=== PATIENT | male | born 1995 | race Caucasian/White ===

== ENCOUNTER 2018-02-07 18:34 | Observation (INO) | payer BC, SELFPAY ==
[2018-02-07] VITALS (10 sets, daily range): BP systolic 116–153; BP diastolic 67–84; PULSE 62–84; RESP 16–24; TEMP 36.8; O2SAT 97–99; BMI 34.7; BMI 35.4; BMI 35.5
[2018-02-07 19:00] LABS: Bedside Glucose 91 mg/dL (70-110)
--- NOTE | 2018-02-07 19:04 | EKG12_ITS ---
Test Reason : NEURO SYMPTOMS Blood Pressure : / mmHG Vent. Rate : 070 BPM Atrial Rate : 070 BPM P-R Int : 176 ms QRS Dur : 098 ms QT Int : 390 ms P-R-T Axes : 052 004 026 degrees QTc Int : 421 ms Normal sinus rhythm Normal ECG Confirmed by EDGAR MARTINEZ, RANDY ([id number]), script editor VIVIANA BRAUN ([id number]) on 02/10/2018 4:00:54 PM Referred By: PAYTON Confirmed By:RANDY HERNÁNDEZ MD
--- NOTE | 2018-02-07 19:06 | CT_ITS ---
CTA of the neck INDICATION: Headache TECHNIQUE: CTA of the neck was performed in the axial plane scanning in a dynamically enhanced fashion from the base of skull through the pulmonary apices followed by sagittal and coronal reconstructions. Radiographic technique was optimized to limit patient radiation dose. FINDINGS: There is no appreciable plaque within the common carotids, carotid bulbs or internal carotids. The vertebrals bilaterally are codominant and normal caliber. There is no evidence for aneurysm or dissection CT/CTA Neck W/WO Contrast IMPRESSION: No appreciable atherosclerotic disease Electronically Signed: Donald Conn MD at 20:58 EDT , Service support ,
--- NOTE | 2018-02-07 19:06 | CT_ITS ---
STUDY: CTA OF THE BRAIN REASON FOR EXAM: Male, 22 years old. Headache possible aneurysm RADIATION DOSAGE (If Supplied By Facility): CTDIvol = ( 45.28 ) mGy, DLP = ( 1684.46 ) mGycm TECHNIQUE: CT angiography was performed with a multi-detector CT scanner. Data acquisition was obtained from the skull base through the vertex following intravenous administration of ml of . MIP images were reconstructed from the axial data set. Post-processing of the angiographic images was performed, with multiplanar reformation and 3D reconstruction. Individualized dose optimization techniques were used for this CT. COMPARISON: None. FINDINGS: Normal bilateral petrous carotid arteries. Normal right cavernous carotid artery with a normal supraclinoid bifurcation. Normal left cavernous carotid artery with a normal supraclinoid bifurcation. Normal right A1 segments of the anterior cerebral artery. Normal left A1 segments of the anterior cerebral artery. Anterior communicating artery not visualized consistent with normal variant). Normal bilateral A2 segments of the anterior cerebral arteries. Normal right M1 and M2 segments of the middle cerebral arteries, with a normal M1 bifurcation. Normal left M1 and M2 segments of the middle cerebral arteries, with a normal M1 bifurcation. Posterior communicating arteries are not visualized consistent with normal variant. Normal bilateral vertebral arteries. Normal basilar artery with a normal basilar bifurcation. The visualized bilateral superior cerebellar (SCA) arteries are normal. Normal bilateral P1, P2 and visualized P3 segments of the posterior cerebral arteries. There is no demonstrated aneurysm of the [place] of [place]. There is no demonstrated abnormality of the visualized brain. CT/CTA Head W/WO Contrast IMPRESSION: Normal [place] of [place] without a demonstrated aneurysm or hemodynamically significant stenosis. Electronically Signed: Donald Conn MD at 20:56 EDT , Service support ,
--- NOTE | 2018-02-07 19:12 | ED.RN ---
NO OLD EKG'S IN MUSE
[2018-02-07 19:44] LABS: Absolute Lymphocyte Count 2.68 X10^3/ul (0.83-4.51); Absolute Neutrophil Count 3.6 X10^3/uL (2.0-7.7); Basophil# 0.02 X10^3/uL; Basophil% 0.3 % (0-1); Eosinophil# 0.09 X10^3/uL; Eosinophils% 1.3 % (0-5); Hematocrit 47.1 % (40-54); Hemoglobin 15.8 g/dl (13.0-16.5); Lymphocyte # 2.68 X10^3/ul (4.0); Mean Corp Hgb Conc 33.5 g/gl (32-36); Mean Corpuscular Hgb 27.4 pg (27.0-32.0); Mean Corpuscular Volume 81.6 fL (80-94); Mean Platelet Vol. 9.3 fl (6.2-12.0); Monocyte# 0.46 X10^3/uL; Monocyte% 6.7 % (0-10); Neutrophil # 3.62 X10^3/uL (2.7-7.7); Neutrophil % 52.6 % (47-70); Platelet Count 181 K/mm3 (150-450); RBC Distribution Width CV 12.4 % (11.6-14.6); RBC Distribution Width SD 36.5 fl (35.1-43.9); Red Blood Count 5.77 M/mm3 (4.6-6.2); White Blood Count 6.9 K/mm3 (4.4-11.0)
[2018-02-07 19:45] LABS: POSITIVE COUNT NO; POSITIVE DIFFERENTIAL NO; POSITIVE MORPHOLOGY NO
[2018-02-07 19:47] LABS: International Normalized Ratio 0.9; Prothrombin Time (Protime)PT. 12.4 SECONDS (11.7-14.9)
[2018-02-07 19:59] LABS: Anion Gap 8 (5-15); BUN 22 mg/dL (7-18); Calcium,Total 9.5 mg/dL (8.5-10.1); Chloride 103 mmol/L (98-107); Creatinine, Serum 1.05 mg/dL (0.70-1.30); EST Glomerular Filtration Rate 95 mL/min (>60); Est Glom Filt Rate - Afr Amer 115 mL/min (>60); Estimated Creatinine Clearance 130.48 ml/min; Glucose 85 mg/dL (74-106); Potassium 4.2 mmol/L (3.5-5.1); Sodium Level 140 mmol/L (136-145)
--- NOTE | 2018-02-07 23:08 | ED.VISSUMM ---
- ER Visit Summary Date of Service: 02/07/18 Chief Complaint: Neurological symptoms History of Present Illness: The patient is a 22 M with neurological symptoms for the past few hours. He was weightlifting, developed vision changes in his right eye, numbness in his right hand. Physical Examination: Patient does have right eye hemianopsia, monocular. He has normal strength and sensation in his right arm however he does have slight pronator drift when he closes his eye. Emergency Department Course and Treatment: CT and CTA are unremarkable. Patient will be admitted for MRI since he has ongoing symptoms. Disposition: Admit in stable condition Impression: Strokelike symptoms This note was generated with [employer] dictation software. It may contain incorrect words, spelling, and punctuation that were not noted in review of the chart prior to signing ED Disposition - Plan for ED Patient: Chief Complaint: Neuro S/Sx Referrals: [facility] Doctor,Out of [Primary Care Provider] -
--- NOTE | 2018-02-07 23:13 | ED.DCSUM_ITS ---
- ER Visit Summary Date of Service: 02/07/18 Chief Complaint: Neurological symptoms History of Present Illness: The patient is a 22 M with neurological symptoms for the past few hours. He was weightlifting, developed vision changes in his right eye, numbness in his right hand. Physical Examination: Patient does have right eye hemianopsia, monocular. He has normal strength and sensation in his right arm however he does have slight pronator drift when he closes his eye. Emergency Department Course and Treatment: CT and CTA are unremarkable. Patient will be admitted for MRI since he has ongoing symptoms. Disposition: Admit in stable condition Impression: Strokelike symptoms This note was generated with [employer] dictation software. It may contain incorrect words, spelling, and punctuation that were not noted in review of the chart prior to signing ED Disposition - Plan for ED Patient: Chief Complaint: Neuro S/Sx Referrals: [facility] Doctor,Out of [Primary Care Provider] -
--- NOTE | 2018-02-07 23:13 | PCM.HP.STD ---
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 Onset of symptoms began at 5:30 this afternoon while driving from work to the gym where does weight training for football. He admits to whey supplements but denies steroid or other sports enhancing drugs (he gets tested but [employer]). He has a headache that is on the left parietal area and is 6/10 without nausea. He denies having an aura or hyperacousia. No previous history of migraine disorder. He is dehydrated on the BMP but other hoang blood chemistries are within normal limits. CTA head and neck are also within normal limits. There are no significant family history of neurological disorders. He will be admitted for neurological evaluation and MRI/MRA head in am. He did complain of numbness and tingling in both legs two weeks prior but has not experienced anything similar prior. Past Medical History Allergies No Known Allergies Allergy (Verified 02/07/18 18:36) Home Medications: Ambulatory Orders Medication Instructions Recorded No Known/Unobtainable [No Known 01/16/17 Home Medications] Surgical History: no surgical history Smoking Status: Never smoker - *Family History Maternal History Items: No pertinent history Review of Systems Constitutional: Denies: Chills, Fever, Weight Change HEENT: Reports: Head Aches. Denies: Sinus Congestion, Sinus Drainage Cardiovascular: Denies: Chest Pain, Palpitations Respiratory: Denies: Cough, Shortness of breath at rest, Sputum production Gastrointestinal: Denies: Abdominal Pain, Nausea, Vomiting Genitourinary: Denies: Dysuria Musculoskeletal: Denies: Joint Pain, Joint Tenderness Skin: Denies: Rash, Wounds Neurological: Reports: Blurred vision, Headaches, Numbness, Tingling. Denies: Focal weakness Psychiatric: Denies: Anxiety, Depression, Homicidal Ideations, Suicidal Ideations Hematologic/ Lymphatic: Denies: Easy Bruising, Easy Bleeding VTE Information - Inpt Only VTE Present on Admission: No VTE Mechan Device Prophylaxis: None VTE Pharm Prophylaxis ordered?: Yes Patient Problems: Active and Suspected Problems Hemianopsia (Acute) Arm paresthesia, right (Acute) Headache (Acute) - Physical Exam General: Alert, Oriented x3, Cooperative HEENT: Atraumatic, PERRLA, EOMI, Normocephalic Neck: Supple, No JVD, Negative Carotid Bruits Lungs: Clear to auscultation, Normal air movement, No rhonchi, No wheeze, No rales Cardiovascular: Regular rate, Regular Rhythm, Normal S1, Normal S2, No murmurs Abdomen: Bowel Sounds Present, Soft, Non Tender Extremities: No edema, Capillary Refill Less than 3 Seconds Skin: No rashes, No breakdown Musculoskeletal: No Tenderness to Palpation of Joints or Extremities Neurological: Cranial nerves II-XII grossly intact Psych/Mental Status: Normal Affect, Appropriate Vital Signs Temp Pulse Resp BP Pulse Ox 98.3 F 77 16 135/67 H 97 02/07/18 18:35 02/07/18 21:30 02/07/18 21:30 02/07/18 21:30 02/07/18 21:30 Oxygen Delivery Method Room Air Weight: 270 lb 4.587 oz Body Mass Index (BMI) 34.7 Finger Stick Blood Glucose 91 Laboratory Tests Past 24 Hrs 02/07/18 02/07/18 02/07/18 19:25 19:25 19:25 WBC 6.9 RBC 5.77 Hgb 15.8 Hct 47.1 MCV 81.6 MCH 27.4 MCHC 33.5 RDW 12.4 RDW Differential 36.5 Plt Count 181 MPV 9.3 Immature Gran % (Auto) 0.100 Neut % (Auto) 52.6 Lymph % (Auto) 39.0 Mchenry % (Auto) 6.7 Eos % (Auto) 1.3 Baso % (Auto) 0.3 Absolute Neuts (auto) 3.6 Absolute Lymphs (auto) 2.68 Total Counted Not Reportable PT 12.4 INR 0.9 APTT 26.0 Sodium 140 Potassium 4.2 Chloride 103 Carbon Dioxide 29.0 Anion Gap 8 BUN 22 H Creatinine 1.05 Estim Creat Clear Calc 130.48 Est GFR (MDRD) Af Amer 115 Est GFR (MDRD) Non-Af 95 BUN/Creatinine Ratio 21.0 H Glucose 85 Calcium 9.5 Troponin I < 0.015 POC Glucose 02/07/18 18:56 POC Glucose 91 Assessment/Plan All Active Problems Hemianopsia (Acute) Arm paresthesia, right (Acute) Headache (Acute) Plan - admit to progressive care unit - neurological evaluation q 4 hrs - consult to neurology - MRI/MRA head in am - cbc, bmp in am - toradol, 30mg IV q 6 prn headache - LMWH for DVT prophylaxis Code Visit Inpatient E&M: 23792 Init Hosp L3
[2018-02-07] MEDS: Ketorolac 15 MG/ML Vial IV (23:29)
--- NOTE | 2018-02-07 23:42 | NURSING ---
Called [facility] charge nursechiqui to send patient to the floor.
[2018-02-08] VITALS: BP 139/75; PULSE 61; PULSE 67; RESP 16; TEMP 36.6; O2SAT 100
[2018-02-08 00:05] VITALS: BP 139/75; BP 145/79; PULSE 61; RESP 18; TEMP 36.6
[2018-02-08 01:45] VITALS: PULSE 58; RESP 12; RESP 14; O2SAT 96
[2018-02-08 06:00] VITALS: BP 134/59; PULSE 63; RESP 16; TEMP 36.2; O2SAT 98
[2018-02-08 06:43] LABS: Anion Gap 4 (5-15); BUN 18 mg/dL (7-18); BUN/Creat Ratio 19.3 RATIO (10-20); Chloride 106 mmol/L (98-107); Cholesterol 191 mg/dL (200); Creatinine, Serum 0.93 mg/dL (0.70-1.30); EST Glomerular Filtration Rate 109 mL/min (>60); Est Glom Filt Rate - Afr Amer 132 mL/min (>60); Estimated Creatinine Clearance 143.19 ml/min; Glucose 99 mg/dL (74-106); High Density Lipoprotein 41 mg/dL; Potassium 4.1 mmol/L (3.5-5.1); Sodium Level 139 mmol/L (136-145); Triglycerides 171 mg/dL; Very Low Density Lipoprotein 34 mg/dL (5-40)
[2018-02-08 07:46] VITALS: BP 126/67; PULSE 76; RESP 16; TEMP 36.4; O2SAT 100
--- NOTE | 2018-02-08 08:30 | MRI_ITS ---
STUDY: MRA OF THE HEAD WITHOUT CONTRAST REASON FOR EXAM: Male, 22 years old. rt arm parasthesia/rt visual field loss since 5:30pm 02/07/18. TECHNIQUE: 3-D [id number] (TOF) imaging was performed with MIPs. The study was performed unenhanced. COMPARISON: None. FINDINGS: Normal bilateral petrous carotid arteries. Normal right cavernous carotid artery with a normal supraclinoid bifurcation. Normal left cavernous carotid artery with a normal supraclinoid bifurcation. Normal right A1 segments of the anterior cerebral artery. Normal left A1 segments of the anterior cerebral artery. Normal intact anterior communicating artery (ACOM). Normal bilateral A2 segments of the anterior cerebral arteries. Normal right M1 and M2 segments of the middle cerebral arteries, with a normal M1 bifurcation. Normal left M1 and M2 segments of the middle cerebral arteries, with a normal M1 bifurcation. Normal bilateral vertebral arteries. Normal basilar artery with a normal basilar bifurcation. The visualized bilateral superior cerebellar (SCA) arteries are normal. Normal bilateral P1, P2 and visualized P3 segments of the posterior cerebral arteries. There is no demonstrated aneurysm of the [place] of [place]. There is no major vessel occlusion or hemodynamically significant stenosis. There is no demonstrated abnormality of the visualized brain. MRI/MRA Head ONLY without Contrast IMPRESSION: Normal MRA of the head Electronically Signed: Ahbinav Swanson MD at 11:49 EDT Tel , Service support ,
--- NOTE | 2018-02-08 08:30 | MRI_ITS ---
STUDY: MRI BRAIN WITHOUT CONTRAST REASON FOR EXAM: Male, 22 years old. rt arm parasthesia/rt visual field loss since 5:30pm 02/07/18. TECHNIQUE: Standardized multiplanar fat and water weighted pulse sequences were obtained. COMPARISON: January 16, 2017 FINDINGS: Normal size of the ventricles and extra-axial spaces for the patient's age. Normal white matter tracts of the supratentorial brain. Normal bilateral basal ganglia. Normal thalami. There is no extra-axial fluid accumulation. Normal flow voids within the major intracranial circulation suggesting patency by spin echo criteria. Normal sella turcica, pituitary gland, infundibular stalk, optic chiasm and hypothalamus. Normal tectal plate and pineal gland. Normal midbrain, keya and medulla. Normal cerebellum. Normal basal cisterns. Normal bilateral temporal bones. Normal bilateral internal auditory canals. No demonstrated orbital abnormality, within the constraints of a routine brain study. Normal visualized paranasal sinuses. Normal calvarium and skull base. Normal visualized soft tissue structures. Normal visualized upper cervical spine. MRI/Brain without Contrast IMPRESSION: Normal unenhanced MRI of the brain. Electronically Signed: Abhinav Swanson MD at 8:58 EDT Tel , Service support ,
[2018-02-08] MEDS: Enoxaparin 40 MG/0.4 ML Syringe SC (09:05)
[2018-02-08 11:00] VITALS: O2SAT 97
--- NOTE | 2018-02-08 11:14 | CON.PCM_ITS ---
Reason for Consult Date of Consultation: 02/08/18 History of Present Illness: The patient is a 22 year old right handed male with history of migraine yesterday after work at about 530pm noted onset of right arm then right face tingling associated with slurred speech, followed by headache. today right sided symptoms have resolved, lasted about 6hrs. still has headache, reports history of headache, last of which occurred one year ago, describes posterior head and neck pain. grandmother reports two weeks ago had episode of bilateral feet tinglng which resolved. reports no trigger, med changes, insomnia or stress. on cpap, last study was in july. good cpap compliance. family history of migraine in mom and maternal grandmother. 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 Onset of symptoms began at 5:30 this afternoon while driving from work to the gym where does weight training for football. He admits to whey supplements but denies steroid or other sports enhancing drugs (he gets tested but [employer]). He has a headache that is on the left parietal area and is 6/10 without nausea. He denies having an aura or hyperacousia. No previous history of migraine disorder. He is dehydrated on the BMP but other hoang blood chemistries are within normal limits. CTA head and neck are also within normal limits. There are no significant family history of neurological disorders. He will be admitted for neurological evaluation and MRI /MRA head in am. He did complain of numbness and tingling in both legs two weeks prior but has not experienced anything similar prior. Past Medical History Allergies No Known Allergies Allergy (Verified 02/07/18 18:36) Home Medications: Ambulatory Orders Medication Instructions Recorded No Known/Unobtainable [No Known 01/16/17 Home Medications] Surgical History: no surgical history Psychiatric History: No pertinent psych hx Smoking Status: Never smoker - *Family History Maternal History Items: No pertinent history Review of Systems Constitutional: Denies: Chills, Fever, Weight Change HEENT: Denies: Head Aches, Sinus Congestion, Sinus Drainage Cardiovascular: Denies: Chest Pain, Palpitations Respiratory: Denies: Cough, Shortness of breath at rest, Sputum production Gastrointestinal: Denies: Abdominal Pain, Nausea, Vomiting Genitourinary: Denies: Dysuria Musculoskeletal: Denies: Joint Pain, Joint Tenderness Skin: Denies: Rash, Wounds Neurological: Denies: Numbness, Tingling, Focal weakness Psychiatric: Denies: Anxiety, Depression, Homicidal Ideations, Suicidal Ideations Hematologic/ Lymphatic: Denies: Easy Bruising, Easy Bleeding Patient Problems: Active and Suspected Problems Hemianopsia (Acute) Arm paresthesia, right (Acute) Headache (Acute) - Physical Exam General: Alert, Oriented x3, Cooperative HEENT: Atraumatic, PERRLA, EOMI, Normocephalic Neck: Supple, No JVD, Negative Carotid Bruits Lungs: Clear to auscultation, Normal air movement Cardiovascular: Regular rate, No murmurs Abdomen: Bowel Sounds Present, Soft, Non Tender Extremities: No edema, Capillary Refill Less than 3 Seconds Skin: No rashes, No breakdown Musculoskeletal: No Tenderness to Palpation of Joints or Extremities Neurological: Cranial nerves II-XII grossly intact Psych/Mental Status: Normal Affect, Appropriate Vital Signs Temp Pulse Resp BP Pulse Ox 36.4 C L 76 16 126/67 H 100 02/08/18 07:46 02/08/18 07:46 02/08/18 07:46 02/08/18 07:46 02/08/18 07:46 Oxygen Flow Rate (L/min) 100 Oxygen Delivery Method Bi-pap Weight: 121.9 kg Body Mass Index (BMI) 35.4 Intake and Output for Last 24 Hours 02/06/18 02/07/18 02/08/18 23:59 23:59 23:59 Intake Total 0 / 0 Balance 0 / 0 Laboratory Tests Past 24 Hrs 02/08/18 05:50 Sodium 139 Potassium 4.1 Chloride 106 Carbon Dioxide 29.0 Anion Gap 4 L BUN 18 Creatinine 0.93 Estim Creat Clear Calc 143.19 Est GFR (MDRD) Af Amer 132 Est GFR (MDRD) Non-Af 109 BUN/Creatinine Ratio 19.3 Glucose 99 Calcium 9.0 Triglycerides 171 Cholesterol 191 LDL Cholesterol 116 VLDL Cholesterol 34 HDL Cholesterol 41 Assessment/Plan All Active Problems Hemianopsia (Acute) Arm paresthesia, right (Acute) Headache (Acute) complex migraine ok to dc fu prn
--- NOTE | 2018-02-08 11:30 | PCM.DC ---
- Discharge Diagnoses Current Active Problems: Current Active and Chronic Problems Hemianopsia (Acute) Arm paresthesia, right (Acute) Headache (Acute) You will use the following diet at home:: No restrictions Discharge Activity: Return to Normal Activity Call your doctor if you observe: Numbness or Tingling, Dizziness, Fainting spells Allergies/Adverse Reactions: Allergies No Known Allergies Allergy (Verified 02/07/18 18:36) Medications to take at Discharge No Known/Unobtainable [No Known Home Medications] 01/16/17 Primary Care Physician: Roberto Eddy,Out of [Primary Care Provider] - Please follow up with your Primary Care Physician in: 1 Week Please Follow Up With: Hank Culp MD - Neurology When: As needed, if further recurrences of symptoms Proposed Discharge Date: 02/08/18
--- NOTE | 2018-02-08 11:32 | PCM.DC.SUM ---
<Radha Reid - Last Filed: 02/08/18 11:40> Discharge Date and Diagnosis Date of Admission: 02/07/18 Date of Discharge: 02/08/18 - Primary Discharge Diagnosis Active and Suspected Problems 1. Complex migraine Hospital Course and Treatment Imaging Results: Diagnostic Data Head CTA 02/07/18 19:06 IMPRESSION: Normal [place] of [place] without a demonstrated aneurysm or hemodynamically significant stenosis. Electronically Signed: Donald Conn MD at 20:56 EDT , Service support , Neck CTA 02/07/18 19:06 IMPRESSION: No appreciable atherosclerotic disease Electronically Signed: Donald Conn MD at 20:58 EDT , Service support , Brain MRI 02/08/18 08:30 IMPRESSION: Normal unenhanced MRI of the brain. Electronically Signed: Abhinav Swanson MD at 8:58 EDT Tel , Service support , Dr. Culp- Neurology Operations: None Procedures: None Summary of Care Provided: The patient is a 22 year old M admitted 02/07/2018 due to right arm numbness and tingling, right hemianopsia. Patient states this occurred for approximately 30 minutes and has since completely resolved. He denies history of similar episodes. CTA of head unremarkable, CTA of neck unremarkable, MRI of brain normal. Lab work unremarkable. Vital signs stable. Patient was evaluated by neurology who suspects complex migraine. He will follow-up with primary care physician in 1 week and can follow-up with neurology as needed or if repeat episodes of complex migraine. Patient seen examined prior to discharge. Alert, oriented, no acute distress. Heart regular in rate and rhythm. Lungs clear. Abdomen soft, nontender. Neuro grossly intact. Skin intact. Normal affect. This patient was seen by KERRI Mtz under the supervision of Dr. Wong. Discharge Diet: No Restrictions Discharge Activity: Return to Normal Activity Call your doctor if you observe: Numbness or Tingling, Dizziness, Fainting spells Home Medications: Medications to take at Discharge No Known/Unobtainable [No Known Home Medications] 01/16/17 Primary Care Physician: Roberto Eddy,Out of [Primary Care Provider] - Please follow up with your Primary Care Physician in: 1 Week Please Follow Up With: Hank Culp MD - Neurology When: As needed, if further recurrences of symptoms Disposition: Home Minutes spent on discharge:: 35 Patient Condition:: Stable Medical Necessity - Tobacco Use Smoking Status: Never smoker Meaningful Use Info Meaningful Use Diagnoses (Choose all that apply): None applicable <Noel Wong - Last Filed: 02/08/18 13:00> Hospital Course and Treatment Imaging Results: 02/08/18 08:30 Brain without Contrast [MRI] Stat MRA Head ONLY without Contrast [MRI] Stat Operations: None Procedures: None Summary of Care Provided: Patient seen and examined independently. Data reviewed. I agree with the above note by the nurse practitioner. The patient is a 22 year old M presents with right arm numbness, paresthesias and right hemianopsia. Patient underwent a extensive workup including MRI, CTA of the head and neck all of which were normal. Patient was seen in consultation by neurology who felt this was a complex migraine variant. Patient has migraines very infrequently, about once per year. No preventive medications are necessary at this time. [] Discharge Diet: No Restrictions Discharge Activity: Return to Normal Activity Call your doctor if you observe: Numbness or Tingling, Dizziness, Fainting spells Disposition: Home Patient Condition:: Stable Meaningful Use Info Meaningful Use Diagnoses (Choose all that apply): None applicable Code Visit OBSV E&M: 86262 Observation care discharge
--- NOTE | 2018-02-08 11:40 | DS.PCM_ITS ---
<Radha Reid - Last Filed: 02/08/18 11:40> Discharge Date and Diagnosis Date of Admission: 02/07/18 Date of Discharge: 02/08/18 - Primary Discharge Diagnosis Active and Suspected Problems 1. Complex migraine Hospital Course and Treatment Imaging Results: Diagnostic Data Head CTA 02/07/18 19:06 IMPRESSION: Normal [place] without a demonstrated aneurysm or hemodynamically significant stenosis. Electronically Signed: Donald Conn MD at 20:56 EDT , Service support , Neck CTA 02/07/18 19:06 IMPRESSION: No appreciable atherosclerotic disease Electronically Signed: Donald Conn MD at 20:58 EDT , Service support , Brain MRI 02/08/18 08:30 IMPRESSION: Normal unenhanced MRI of the brain. Electronically Signed: Abhinav Swanson MD at 8:58 EDT Tel , Service support , Dr. Culp- Neurology Operations: None Procedures: None Summary of Care Provided: The patient is a 22 year old M admitted 02/07/2018 due to right arm numbness and tingling, right hemianopsia. Patient states this occurred for approximately 30 minutes and has since completely resolved. He denies history of similar episodes. CTA of head unremarkable, CTA of neck unremarkable, MRI of brain normal. Lab work unremarkable. Vital signs stable. Patient was evaluated by neurology who suspects complex migraine. He will follow-up with primary care physician in 1 week and can follow-up with neurology as needed or if repeat episodes of complex migraine. Patient seen examined prior to discharge. Alert, oriented, no acute distress. Heart regular in rate and rhythm. Lungs clear. Abdomen soft, nontender. Neuro grossly intact. Skin intact. Normal affect. This patient was seen by KERRI Mtz under the supervision of Dr. Wong. Discharge Diet: No Restrictions Discharge Activity: Return to Normal Activity Call your doctor if you observe: Numbness or Tingling, Dizziness, Fainting spells Home Medications: Medications to take at Discharge No Known/Unobtainable [No Known Home Medications] 01/16/17 Primary Care Physician: Roberto Eddy,Out of [Primary Care Provider] - Please follow up with your Primary Care Physician in: 1 Week Please Follow Up With: Hank Culp MD - Neurology When: As needed, if further recurrences of symptoms Disposition: Home Minutes spent on discharge:: 35 Patient Condition:: Stable Medical Necessity - Tobacco Use Smoking Status: Never smoker Meaningful Use Info Meaningful Use Diagnoses (Choose all that apply): None applicable <Noel Wong - Last Filed: 02/08/18 13:00> Hospital Course and Treatment Imaging Results: 02/08/18 08:30 Brain without Contrast [MRI] Stat MRA Head ONLY without Contrast [MRI] Stat Operations: None Procedures: None Summary of Care Provided: Patient seen and examined independently. Data reviewed. I agree with the above note by the nurse practitioner. The patient is a 22 year old M presents with right arm numbness, paresthesias and right hemianopsia. Patient underwent a extensive workup including MRI, CTA of the head and neck all of which were normal. Patient was seen in consultation by neurology who felt this was a complex migraine variant. Patient has migraines very infrequently, about once per year. No preventive medications are necessary at this time. [] Discharge Diet: No Restrictions Discharge Activity: Return to Normal Activity Call your doctor if you observe: Numbness or Tingling, Dizziness, Fainting spells Disposition: Home Patient Condition:: Stable Meaningful Use Info Meaningful Use Diagnoses (Choose all that apply): None applicable Code Visit OBSV E&M: 82166 Observation care discharge
== END 2018-02-08 11:31 | disposition home or self-care (01) ==
LOC: ED 19:04 → PCU 23:42
PROVIDERS: Admitting Provider Family Medicine; Emergency Provider Emergency Medicine
DX: G43.109 Migraine with aura, not intractable, without status migrainosus (principal); H53.47 Heteronymous bilateral field defects
CPT/HCPCS: 36415; 70496; 70498; 70544; 70551; 80048; 80061; 82962; 84484; 85025; 85610; 85730; 93005; 94002; 96361; 96372; 96374; 99218; 99284; J7030; J7040; Q9967; A4216; G0378

== ENCOUNTER 2018-07-06 23:24 | Emergency (ER) | payer BC, SELFPAY ==
[2018-07-06 23:26] VITALS: BP 151/85; PULSE 84; RESP 16; TEMP 36.7; O2SAT 99; BMI 34.9
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
--- NOTE | 2018-07-07 00:47 | DCINST.ED_ITS ---
ED Disposition - Plan for ED Patient: Chief Complaint: Trauma Instructions: ED Head Injury Closed, ED Contusion Face Referrals: [facility] Doctor,Out of [Primary Care Provider] - Dominic Lazaro MD [STAFF PHYSICIAN] - 3-5 Days
[2018-07-07 00:52] VITALS: BP 135/69; PULSE 78; RESP 18; O2SAT 99
== END 2018-07-07 00:53 | disposition home or self-care (01) ==
PROVIDERS: Emergency Provider Emergency Medicine
DX: S09.90XA Unspecified injury of head, initial encounter (principal); S00.431A Contusion of right ear, initial encounter; X58.XXXA Exposure to other specified factors, initial encounter; Y93.89 Activity, other specified
CPT/HCPCS: 70450; 70486; 99282